=== PATIENT | male | born 1945 | race Caucasian/White ===

== ENCOUNTER 2025-04-25 22:02 | Emergency (ER) | payer OTHER, SELFPAY ==
[2025-04-25 22:08] VITALS: BP 164/89
[2025-04-25 22:50] LABS: Hematocrit 40.2 % (39.0-52.0); Hemoglobin 13.7 g/dL (13.0-18.0); Mean Corp Hgb Conc. 34.1 g/dL (33.0-37.0); Mean Corpuscular Volume 91.2 fL (80.0-94.0); Nucleated Red Blood Cells % 0 % (-); Platelet Count 223 10^3/uL (130-400); Red Cell Dist. Width 13.3 % (11.5-14.5)
[2025-04-25 22:54] LABS: ALT (SGPT) 27 U/L (0-50); AST (SGOT) 23 U/L (17-59); Albumin 4.0 g/dl (3.5-5.0); Alkaline Phosphatase 82 U/L (38-126); Blood Urea Nitrogen 22 mg/dl (9-20); Calcium 10.4 mg/dl (8.4-10.2); Carbon Dioxide 24 mmol/L (22-30); Chloride 109 mmol/L (98-107); Glucose 123 mg/dl (70-99); Potassium 4.0 mmol/L (3.5-5.1); Sodium 138 mmol/L (135-145); Total Protein 6.5 g/dl (6.3-8.2); eGFR > 60.00
[2025-04-26 00:10] VITALS: BP 147/71
--- NOTE | 2025-04-26 01:04 | ED.GENMED ---
History of Present Illness
<Radha Greenberg DO, Resident - Last Filed: 04/26/25 05:52>
General
Chief Complaint: Dizziness
Source: patient
Exam Limitations: none
Time Seen by Provider: 04/26/25 00:45
Nursing documentation reviewed up to this point in time: agreed with
History of Present Illness
History of Present Illness:
Patient is an 79-year-old hypertension and anxiety presenting with dizziness. Patient states that this morning he was constipated and took 2 ducolax. Patient then proceeded to have diarrhea all day. Patient believes he had 5 episodes of diarrhea
the most recent at 6 PM. Around 6 PM patient started to notice that he was feeling dizzy and jittery. He thought maybe he had low blood sugar so he drank some orange juice which helped. He then took a Xanax, which also helped but the symptoms
then returned.
Past History
<Radha Greenberg DO, Resident - Last Filed: 04/26/25 05:52>
Past History
ED Past Medical History: HTN and Other (anxiety)
ED Past Surgical History: Cholecystectomy, Orthopedic and Urological
Social History
Tobacco: Former smoker
Alcohol: Occasional
Personal:
Living: with family
Employment: Retired
Family History
Family History: Other (Colon cancer)
Review of Systems
<Radha Greenberg DO, Resident - Last Filed: 04/26/25 05:52>
Review of Systems
Allergies reviewed?: Yes
All Other Systems: ROS reviewed and negative except as documented in HPI and ROS
Constitutional: Reports no symptoms
EENT: Reports no symptoms
Respiratory: Reports no symptoms
Cardiac: Reports no symptoms
ABD/GI: Reports no symptoms
: Reports no symptoms
Musculoskeletal: Reports no symptoms
Skin: Reports no symptoms
Neurological: Reports dizzy
Endocrine: Reports no symptoms
Hematologic/Lymphatic: Reports no symptoms
Psychiatric: Reports no symptoms
Phy Exam
<Radha Greenberg DO, Resident - Last Filed: 04/26/25 05:52>
General Physical Exam
General Presentation: well appearing and no apparent distress
General age: appears stated age
General Skin: warm and dry
General Habitus: normal
General Mental: alert
General Hydration: appears well hydrated
Cardiovascular Exam
Cardiovascular Exam: regular rate/rhythm
Heart Sounds: normal
Pulmonary Exam
Pulmonary Exam: lungs clear, no respiratory distress, no crackles and no wheezing
Gastrointestinal Exam
Gastrointestinal Exam: normal bowel sounds, non tender, soft and non distended
Neurological Exam
Neurological Exam: alert and oriented x3
Skin Exam
Skin Exam: normal color and warm/dry
Psychiatric Exam
Psychiatric Exam: normal mood/affect
Course
<Radha Greenberg DO, Resident - Last Filed: 04/26/25 05:52>
Orders/Labs/Results
Orders:
Orders
04/25/25 22:16
Electrocardiogram (*1) Urgent
Reason for Study: Vertigo / Dizzy
Cardiology Consult: Unknown
04/25/25 22:17
EKG- Treatment ONCE
04/25/25 22:30
Complete Blood Count/With Diff Urgent
Comprehensive Metabolic Panel Urgent
04/26/25 01:13
Orthostatic VS- Treatment ONCE
Abnormal Lab Results
04/25/25
22:30
RBC 4.41 L 10^6/uL
(4.70-6.10)
MCH 31.1 H pg
(27.0-31.0)
MPV 12.1 H fL
(7.4-10.4)
Absolute Monos (auto) 1.0 H 10^3/uL
(0.1-0.6)
Lymphocytes % 18.6 L %
(20.5-51.1)
Monocytes % 11.4 H %
(1.7-9.3)
Chloride 109 H mmol/L
(98-107)
BUN 22 H mg/dl
(9-20)
Glucose 123 H mg/dl
(70-99)
Calcium 10.4 H mg/dl
(8.4-10.2)
04/25/25 22:30
04/25/25 22:30
Vital Signs
Initial and Last Documented VS:
Initial Vital Signs
Temp Pulse Resp BP Pulse Ox
97.8 F 53 20 164/89 96
04/25/25 22:08 04/25/25 22:08 04/25/25 22:08 04/25/25 22:08 04/25/25 22:08
Last Documented Vital Signs
Temp Pulse Resp BP Pulse Ox
97.8 F 88 18 147/71 94
04/25/25 22:08 04/26/25 00:45 04/26/25 00:45 04/26/25 00:10 04/26/25 01:05
<Mirta King, DO - Last Filed: 04/26/25 01:37>
Orders/Labs/Results
Orders:
Orders
04/25/25 22:16
Electrocardiogram (*1) Urgent
Reason for Study: Vertigo / Dizzy
Cardiology Consult: Unknown
04/25/25 22:17
EKG- Treatment ONCE
04/25/25 22:30
Complete Blood Count/With Diff Urgent
Comprehensive Metabolic Panel Urgent
04/26/25 01:13
Orthostatic VS- Treatment ONCE
Abnormal Lab Results
04/25/25
22:30
RBC 4.41 L 10^6/uL
(4.70-6.10)
MCH 31.1 H pg
(27.0-31.0)
MPV 12.1 H fL
(7.4-10.4)
Absolute Monos (auto) 1.0 H 10^3/uL
(0.1-0.6)
Lymphocytes % 18.6 L %
(20.5-51.1)
Monocytes % 11.4 H %
(1.7-9.3)
Chloride 109 H mmol/L
(98-107)
BUN 22 H mg/dl
(9-20)
Glucose 123 H mg/dl
(70-99)
Calcium 10.4 H mg/dl
(8.4-10.2)
04/25/25 22:30
04/25/25 22:30
Vital Signs
Initial and Last Documented VS:
Initial Vital Signs
Temp Pulse Resp BP Pulse Ox
97.8 F 53 20 164/89 96
04/25/25 22:08 04/25/25 22:08 04/25/25 22:08 04/25/25 22:08 04/25/25 22:08
Last Documented Vital Signs
Temp Pulse Resp BP Pulse Ox
97.8 F 88 18 147/71 94
04/25/25 22:08 04/26/25 00:45 04/26/25 00:45 04/26/25 00:10 04/26/25 01:05
<Radha Greenberg DO, Resident - Last Filed: 04/26/25 05:52>
MDM/Problems Addressed
Differential Diagnosis Includes:
Mild dehydration in setting of diarrhea, chronic constipation
MDM/Problems Addressed:
Symptoms have completely resolved since being in the ED. Symptoms likely related to earlier diarrhea associated with taking Ducolax earlier in the day for constipation. Will do orthostatics for completeness.
Will discharge patient with recommendations for increase fiber intake.
<Radha Greenberg DO, Resident - Last Filed: 04/26/25 05:52>
*Pulse Oximetry
SaO2: 94
Oxygen Mode of Delivery: Room air
Patient hypoxic: no
*Critical Care Note
Total Time (30-74mins, 75-104mins- exclusive of procedures): Not Applicable
ED Attending Note
<Radha Greenberg DO, Resident - Last Filed: 04/26/25 05:52>
-
Portions of this chart may have been created with voice recognition software.� Occasional wrong word or��sound alike� substitutions may have occurred due to the inherent limitations of voice recognition software.
<Mirta King DO - Last Filed: 04/26/25 01:37>
ED Attending Note
Patient seen and examined by attending physician: Yes
I performed a history and physical exam of patient and discussed management with resident, I reviewed resident's note and agree with documented findings and plan of care.: Yes
ED Attending Note:
This is a maurice 79-year-old gentleman with history of hypertension, hyperlipidemia, anxiety, chronic back pain, chronically maintained on opioids. He does note some chronic constipation and today he took 2 Dulcolax tablets this morning and
proceeded to pass 5-6 watery nonbloody bowel movements. This evening around 6 PM he began to feel dizzy, mildly shaky but no chest pain or palpitations, no diaphoresis. He drank orange juice and felt improved. He ate dinner. He continued with
mild shakiness and took a dose of Xanax with marked improvement and now has had complete resolution.
He continues to deny abdominal pain. No headache.
No history of diabetes nor hypoglycemia.
79-year-old overweight gentleman appears his stated age, bright and alert, pleasant, appears in no acute distress.
Oral mucosa is moist.
Neck is supple, nontender. No JVD.
Heart is regular rate and rhythm.
Lungs are clear to auscultation.
Abdomen is rotund, soft, nondistended, nontender. Normoactive bowel sounds.
Extremities without clubbing or cyanosis or edema. Nontender.
Neuro: Awake alert and oriented x 3. No focal neurodeficits. Gait is steady.
Patient has had complete resolution of symptoms which I suspect were mild dehydration related to diarrhea which appears related to laxative use.
He admits to chronic constipation and likely related to chronic opioid therapy. Thus far has not been maintained on a bowel regimen.
EKG is unremarkable and unchanged from previous. Monitor shows normal sinus rhythm. No arrhythmia.
He remains hemodynamically stable.
Labs are unremarkable save for very minimally elevated BUN of 22. Normal glucose 123.
My plan was to check orthostatic vital signs for completeness sake but patient has since gotten himself up out of bed, into the bathroom, has gotten himself dressed and remains asymptomatic. Thus no indication for orthostatic vital sign evaluation.
Recommend initiation of a daily fiber supplement and if this is ineffective then add MiraLAX to daily fiber supplement.
Discussed importance of staying well-hydrated on a daily basis.
Prompt follow-up with PCP for recheck.
Return precautions discussed.
.
Discharge Plan
Departure
Patient Disposition: Home (Routine Discharge)
Date of Disposition: 04/26/25
Time of Disposition: 01:30
Patient with high blood pressure during this ER visit?: No
Condition: Good
Discharge Problem:
Laxative related diarrhea, Dizziness related to mild dehydration
Instructions: Managing constipation from your medicines, Dizziness
Prescriptions:
No Action
oxycodone 10 MG tablet
10 mg PO BIDPRN MDD 40mg PRN (Reason: severe pain)
Patient Comments:
09/24/2023, pt. filled this medication on 09/12/2023 for 60 tablets according to PDMP.
amlodipine 5 MG tablet
5 mg PO DAILY
melatonin 5 MG tablet
10 mg PO HS
polyethylene glycol 3350 17 GRAMS powder in packet
17 grams PO DAILY PRN (Reason: Constipation)
acetaminophen [Tylenol Extra Strength] 500 mg Tablet
1,000 mg PO DAILYPRN PRN (Reason: mild pain)
alprazolam 0.25 mg Tablet
0.25 mg PO DAILY PRN (Reason: anxiety)
Patient Comments:
09/24/2023, pt. filled this medication on 09/18/2023 for 30 tablets according to PDMP.
paroxetine HCl 40 mg Tablet
60 mg PO DAILY
losartan 100 mg Tablet
50 mg PO DAILY
fenofibrate nanocrystallized 145 mg Tablet
145 mg PO DAILY
oseltamivir 75 mg Capsule
75 mg PO BID Qty: 4 0RF
atorvastatin 40 mg Tablet
40 mg PO QPM Qty: 30 0RF
aspirin 81 mg Tablet,Delayed Release (Dr/Ec)
81 mg PO DAILY Qty: 30 0RF
folic acid 1 mg Tablet
1 mg PO DAILY Qty: 30 0RF
thiamine HCl (vitamin B1) 100 mg tablet
100 mg PO DAILY Qty: 20 0RF
Activity Restrictions/Additional Instructions:
I want you to start a fiber supplement such as Metamucil or Benefiber and continue this on a daily basis.
If daily fiber supplement is not completely effective with limiting constipation, I want you to continue daily fiber supplement as well as add a daily dose of MiraLAX.
Continue this regimen on a daily basis as well as stay well-hydrated on a daily basis.
Follow-up with your primary care physician for recheck.
Interventions
Interventions:
*Risk Screen - Suicide Last Done: 04/25/25 22:08
*General Assessment Last Done: 04/25/25 22:08
*Neglect/Abuse Screening Last Done: 04/25/25 22:08
*ED- Fall Risk Assessment Last Done: 04/25/25 22:08
*ED COVID-19 Vaccine History Last Done: 04/25/25 22:08
*Nursing Disposition Last Done: 04/26/25 02:05
ED- Neurological Assessment Last Done: 04/26/25 02:05
ED- Cardiac Assessment Last Done: 04/26/25 02:05
ED Swallowing Screen Last Done: 04/26/25 02:05
Discharge Date and Time
Discharge Date/Time: 04/26/25 02:07
Print Language: YI
== END 2025-04-26 02:07 | disposition home or self-care (01) ==
LOC: EMR 22:02
PROVIDERS: EMERGENCY PHYSICIAN Emergency Medicine; FAMILY PHYSICIAN Family Medicine
DX: R19.7 Diarrhea, unspecified (principal); T47.2X5A Adverse effect of stimulant laxatives, initial encounter; E86.0 Dehydration; R42 Dizziness and giddiness; I10 Essential (primary) hypertension; E78.5 Hyperlipidemia, unspecified; E66.3 Overweight; G89.29 Other chronic pain; Z79.891 Long term (current) use of opiate analgesic
CPT/HCPCS: 99284; 80053; 85025; 93005

== ENCOUNTER → 2025-05-01 21:16 | Emergency (ER) | payer OTHER, SELFPAY ==
[2025-05-01 21:21] VITALS: BP 120/86
[2025-05-01 22:16] VITALS: BMI 36.7
[2025-05-01 22:19] VITALS: BP 180/71
--- NOTE | 2025-05-01 22:36 | ED.GENMED ---
History of Present Illness
General
Chief Complaint: Anxiety
Source: patient
Exam Limitations: none
Time Seen by Provider: 05/01/25 22:23
Nursing documentation reviewed up to this point in time: agreed with
History of Present Illness
History of Present Illness:
79-year-old male presenting with the sensation of anxiety, diaphoresis, and a feeling of loss of control and experiencing 'physiological changes' that began suddenly while getting into bed around 8:15 PM. The patient reports breaking out into a
sweat and experiencing tremors and changes in mental status, described as a 'loss of control.' 'I just feel afraid, scared because of the mental change.'
Denies chest pain, shortness of breath, headaches, or vision changes. Had back spasms earlier tonight and applied a cold pack which provided relief. He has been experiencing constipation for which he takes a laxative, with his last bowel movement
reported as this morning. He fell backwards last week but denies hitting his head.
I called his who states he went to bed and 5 minutes later he came back...'and I don't know, I just do not know.' 'He has a pill for everything, but I guess not this.' she states he has been more anxious lately.
has been babysitting a 10 and 6-year-old grandchild all week, they are due to go home tomorrow. This may be aggravating factor. She states she has no clue why he is like this. States it is out of character for him to act like this.
He has appt in 2 weeks to discuss hip replacement. He states 'maybe I'm anxious about that'
Past History
Past History
ED Past Medical History: HTN and Other (anxiety)
ED Past Surgical History: Cholecystectomy, Orthopedic and Urological
Social History
Tobacco: Former smoker
Alcohol: Occasional
Personal:
Living: with family
Employment: Retired
Family History
Family History: Other (Colon cancer)
Review of Systems
Review of Systems
Allergies reviewed?: Yes
All Other Systems: ROS reviewed and negative except as documented in HPI and ROS
Constitutional: Denies fever or fatigue
Respiratory: Denies trouble breathing
Cardiac: Reports diaphoresis; Denies chest pain or palpitations
ABD/GI: Denies abdominal pain, nausea, vomiting or diarrhea
: Reports difficulty voiding
Musculoskeletal: Reports no symptoms; Denies edema
Skin: Reports no symptoms
Neurological: Reports no symptoms
Psychiatric: Reports anxiety
Phy Exam
Physical Exam
Physical Exam:
GENERAL: No acute distress. A&Ox3.
CONSTITUTIONAL: Afebrile.
EYES: clear, conjunctivae normal
ENMT: moist mucus membranes, Pharynx nl
RESPIRATORY: Regular respirations, nonlabored, lungs clear.
CARDIOVASCULAR: Regular rate and rhythm, no murmurs, no rubs.
GI: Soft, nontender, normal BS
MUSCULOSKELETAL: Moves with ease. Well perfused.
SKIN: Warm, dry, pink
PSYCH: Anxious mood and affect. Patient evaluated, case still but is pleasant and conversive. Well kept, interactive and appropriate
NEUROLOGIC: Awake, alert and oriented. No focal neurological deficits
Course
Orders/Labs/Results
Orders:
Orders
05/01/25 22:22
Electrocardiogram (*1) Urgent
Reason for Study: Hypertension, Benign
EKG- Treatment ONCE
05/01/25 22:48
CBC/With Diff [Complete Blood Count/With Diff] Urgent
Comprehensive Metabolic Panel Routine
05/01/25 23:00
Troponin I Urgent
Abnormal Lab Results
05/01/25
22:48
RBC 4.38 L 10^6/uL
(4.70-6.10)
MCH 31.1 H pg
(27.0-31.0)
MPV 11.9 H fL
(7.4-10.4)
Absolute Neuts (auto) 6.6 H 10^3/uL
(1.4-6.5)
Absolute Monos (auto) 1.1 H 10^3/uL
(0.1-0.6)
Lymphocytes % 20.1 L %
(20.5-51.1)
Monocytes % 11.1 H %
(1.7-9.3)
BUN 26 H mg/dl
(9-20)
Glucose 101 H mg/dl
(70-99)
05/01/25 22:48
05/01/25 22:48
Vital Signs
Initial and Last Documented VS:
Initial Vital Signs
Temp Pulse Resp BP Pulse Ox
98 F 85 16 120/86 99
05/01/25 21:21 05/01/25 21:21 05/01/25 21:21 05/01/25 21:21 05/01/25 21:21
Last Documented Vital Signs
Temp Pulse Resp BP Pulse Ox
98 F 73 15 159/75 99
05/01/25 21:21 05/01/25 23:15 05/01/25 23:15 05/01/25 23:01 05/01/25 22:40
MDM/Problems Addressed
Differential Diagnosis Includes:
anxiety exacerbation, electrolyte imbalance
MDM/Problems Addressed:
79-year-old male presenting with the sensation of anxiety, diaphoresis, and a feeling of loss of control and experiencing 'physiological changes' that began suddenly while getting into bed around 8:15 PM. The patient reports breaking out into a
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
Denies chest pain, shortness of breath, headaches, or vision changes. Had back spasms earlier tonight and applied a cold pack which provided relief. He has been experiencing constipation for which he takes a laxative, with his last bowel movement
reported as this morning. He fell backwards last week but denies hitting his head. He had his usual one drink of Rum and coke tonight.
I called his who states he went to bed and 5 minutes later he came back...'and I don't know, I just do not know.' 'He has a pill for everything, but I guess not this.' she states he has been more anxious lately.
has been babysitting a 10 and 6-year-old grandchild all week, they are due to go home tomorrow. This may be aggravating factor. She states she has no clue why he is like this. States it is out of character for him to act like this.
He has appt in 2 weeks to discuss hip replacement. He states 'maybe I'm anxious about that'
Pt takes Paxil and Xanax. He took 1/2 of his 0.25 mg Xanax [employer] and says it helps but it is wearing off.
He requests I give him something for anxiety. I informed him he should use his Xanax he has at home as directed, no indication to give more at this point.
Plan: Check labs, Troponin, EKG is NSR.
If pritesh, reassure. He has Xanax at home if needed.
11:30 PM:
Patient more calm, pleasant, had a lengthy conversation with him states he is feeling better,. He states he is taking his paroxetine as ordered
CBC with no clinically significant abnormality
CMP with no clinically significant abnormality
Troponin normal
Pt reassured
Patient called his daughter to call him an [employer]
*Pulse Oximetry
SaO2: 99
Oxygen Mode of Delivery: Room air
Patient hypoxic: no
*Critical Care Note
Total Time (30-74mins, 75-104mins- exclusive of procedures): Not Applicable
ED Attending Note
-
Portions of this chart may have been created with voice recognition software.� Occasional wrong word or��sound alike� substitutions may have occurred due to the inherent limitations of voice recognition software.
Discharge Plan
Departure
Patient Disposition: Home (Routine Discharge)
Date of Disposition: 05/01/25
Time of Disposition: 23:46
Patient with high blood pressure during this ER visit?: No
Condition: Good
Discharge Problem:
Anxiety
Instructions: Anxiety, Adult (DC)
Prescriptions:
No Action
oxycodone 10 MG tablet
10 mg PO BIDPRN MDD 40mg PRN (Reason: severe pain)
Patient Comments:
09/24/2023, pt. filled this medication on 09/12/2023 for 60 tablets according to PDMP.
amlodipine 5 MG tablet
5 mg PO DAILY
melatonin 5 MG tablet
10 mg PO HS
polyethylene glycol 3350 17 GRAMS powder in packet
17 grams PO DAILY PRN (Reason: Constipation)
acetaminophen [Tylenol Extra Strength] 500 mg Tablet
1,000 mg PO DAILYPRN PRN (Reason: mild pain)
alprazolam 0.25 mg Tablet
0.25 mg PO DAILY PRN (Reason: anxiety)
Patient Comments:
09/24/2023, pt. filled this medication on 09/18/2023 for 30 tablets according to PDMP.
paroxetine HCl 40 mg Tablet
60 mg PO DAILY
losartan 100 mg Tablet
50 mg PO DAILY
fenofibrate nanocrystallized 145 mg Tablet
145 mg PO DAILY
oseltamivir 75 mg Capsule
75 mg PO BID Qty: 4 0RF
atorvastatin 40 mg Tablet
40 mg PO QPM Qty: 30 0RF
aspirin 81 mg Tablet,Delayed Release (Dr/Ec)
81 mg PO DAILY Qty: 30 0RF
folic acid 1 mg Tablet
1 mg PO DAILY Qty: 30 0RF
thiamine HCl (vitamin B1) 100 mg tablet
100 mg PO DAILY Qty: 20 0RF
Referrals:
Ad Castaneda DO [Family Provider, Family Practice] - Follow up in 2-3 days
Activity Restrictions/Additional Instructions:
As we discussed, nothing worrisome in your workup here tonight.
Continue your Xanax as ordered
Interventions
Interventions:
*Risk Screen - Suicide Last Done: 05/01/25 21:21
*Neglect/Abuse Screening Last Done: 05/01/25 21:21
Discharge Date and Time
Print Language: PANAMANIAN
[2025-05-01 22:55] LABS: Hematocrit 39.7 % (39.0-52.0); Hemoglobin 13.6 g/dL (13.0-18.0); Mean Corp Hgb Conc. 34.3 g/dL (33.0-37.0); Mean Corpuscular Volume 90.6 fL (80.0-94.0); Nucleated Red Blood Cells % 0 % (-); Platelet Count 235 10^3/uL (130-400); Red Cell Dist. Width 13.1 % (11.5-14.5)
[2025-05-01 23:01] VITALS: BP 159/75
[2025-05-01 23:17] LABS: ALT (SGPT) 34 U/L (0-50); AST (SGOT) 31 U/L (17-59); Albumin 4.4 g/dl (3.5-5.0); Alkaline Phosphatase 92 U/L (38-126); Blood Urea Nitrogen 26 mg/dl (9-20); Calcium 9.9 mg/dl (8.4-10.2); Carbon Dioxide 24 mmol/L (22-30); Chloride 107 mmol/L (98-107); Estimated Creatinine Clearance 87 ml/min; Glucose 101 mg/dl (70-99); Potassium 4.3 mmol/L (3.5-5.1); Sodium 138 mmol/L (135-145); Total Protein 6.8 g/dl (6.3-8.2); eGFR > 60.00
[2025-05-01 23:34] LABS: Troponin I 0.012 ng/ml
== END | disposition home or self-care (01) ==
LOC: EMR 21:16
PROVIDERS: Registered Nurse; EMERGENCY PHYSICIAN Student in an Organized Health Care Education/Training Program; FAMILY PHYSICIAN Family Medicine
DX: F41.9 Anxiety disorder, unspecified (principal); I10 Essential (primary) hypertension; Z80.0 Family history of malignant neoplasm of digestive organs; Z87.891 Personal history of nicotine dependence; Z90.49 Acquired absence of other specified parts of digestive tract
CPT/HCPCS: 99283; 80053; 84484; 85025; 93005

== ENCOUNTER 2025-05-02 15:44 | Emergency (ER) | payer OTHER, SELFPAY ==
[2025-05-02 15:50] VITALS: BP 152/70
--- NOTE | 2025-05-02 17:03 | ED.GENMED ---
History of Present Illness
General
Chief Complaint: Anxiety
Source: patient, spouse and family
Exam Limitations: none
Time Seen by Provider: 05/02/25 16:20
Nursing documentation reviewed up to this point in time: agreed with
History of Present Illness
History of Present Illness:
Patient is an 79-year-old male with past medica history of anxiety, hypertension, high cholesterol alcohol use presents to the ER for evaluation. Patient here with his who is giving history along with his daughter who is a nurse practitioner
over the phone. Family reports patient is been very anxious and more confused. He does have some slight cognitive issues however father reports he seems more confused than normal over the past week and is very shaky jittery sweaty. Daughter
reports patient seen afraid and anxious. Patient does report he skipped several doses of paroxetine and is on alprazolam as needed today he took several doses. Patient typically drinks rum every day mostly in the evenings. LAst drank last night.
No prior history of withdrawal seizures. Patient denies any recent illness fever chills denies any chest pain shortness of breath.
Past History
Past History
ED Past Medical History: HTN and Other (anxiety)
ED Past Surgical History: Cholecystectomy, Orthopedic and Urological
Social History
Tobacco: Former smoker
Alcohol: Occasional
Personal:
Living: with family
Employment: Retired
Family History
Family History: Other (Colon cancer)
Phy Exam
General Physical Exam
General Presentation: no apparent distress
General age: appears stated age
General Skin: warm and dry
General Habitus: normal
General Mental: alert
General Hydration: appears well hydrated
Cardiovascular Exam
Cardiovascular Exam: regular rate/rhythm, no murmur and normal peripheral pulses
Pulmonary Exam
Pulmonary Exam: lungs clear and no respiratory distress
Neurological Exam
Neurological Exam: alert, oriented x3, no motor deficits and no sensory deficits
Musculoskeletal Exam
Musculoskeletal Exam: full ROM
Skin Exam
Skin Exam: normal color and warm/dry
Psychiatric Exam
Psychiatric Exam: anxious
Course
Orders/Labs/Results
Orders:
Orders
05/02/25 17:01
CT Head W/o Iv Contrast Urgent
Comment:
Reason For Exam: change in ms
IV Insert/Care/Rem.- Treatment PRN
05/02/25 17:44
Complete Blood Count/With Diff Urgent
Comprehensive Metabolic Panel Urgent
05/02/25 18:18
Urinalysis Reflex To Culture Urgent
Date Specimen was Collected: 05/02/25
Time Specimen was Collected: 18:15
Urine Microscopic Reflex Cult Urgent
Urine Culture Urgent
SAMI Source: U
Specimen Description:
Obtained by: Random
Date Specimen was Collected: 05/02/25
Time Specimen was Collected: 18:15
05/02/25 20:22
Cefdinir [Omnicef] 300 mg PO NOW STA
Abnormal Lab Results
05/02/25 05/02/25
17:44 18:18
RBC 4.28 L 10^6/uL
(4.70-6.10)
MPV 12.3 H fL
(7.4-10.4)
Absolute Monos (auto) 1.0 H 10^3/uL
(0.1-0.6)
Lymphocytes % 19.3 L %
(20.5-51.1)
Monocytes % 12.5 H %
(1.7-9.3)
Chloride 108 H mmol/L
(98-107)
BUN 24 H mg/dl
(9-20)
Glucose 109 H mg/dl
(70-99)
Ur Occult Blood Reflex 2+ A
(Negative)
Leukocyte Esterase Rfl 3+ A
(Negative)
Urine RBC 11-15 A /HPF
(0-2)
Urine WBC (Reflex) 30-40 A /HPF
(0-5)
Urine Bacteria (Reflex) Moderate A
(Negative)
Urine Albumin (Reflex) 1+ A
(Neg - Trace)
05/02/25 17:44
05/02/25 17:44
Vital Signs
Initial and Last Documented VS:
Initial Vital Signs
Temp Pulse Resp BP Pulse Ox
97.9 F 78 17 152/70 99
05/02/25 15:50 05/02/25 15:50 05/02/25 15:50 05/02/25 15:50 05/02/25 15:50
Last Documented Vital Signs
Temp Pulse Resp BP Pulse Ox
97.9 F 78 17 152/70 99
05/02/25 15:50 05/02/25 15:50 05/02/25 15:50 05/02/25 15:50 05/02/25 17:06
MDM/Problems Addressed
Differential Diagnosis Includes:
Not limited to dehydration UTI alcohol use, infection
MDM/Problems Addressed:
As documented patient is an 79-year-old male with cognitive issues/memory issues and anxiety. Family noted patient has been a little more confused than normal. Patient was seen here yesterday. Patient presents awake alert he does complain of
mild anxiety however he is awake alert no acute distress no recent fever chills illness or injury. Patient is well-appearing afebrile normal white count stable hemoglobin BUN minimally elevated however he has been drinking here UTI does appear
infected likely the cause of patient's mild confusion patient is well-appearing and wants to go home. In addition family reports and patient does admit to alcohol use/abuse that he drinks from mixed with either soda or juice every day. Family
asked about rehab however patient does not want to go to inpatient rehab. He is open to resources. He would like to go home and try to arrange this as an outpatient.
[facility] they will contact patient in the morning
I did review with daughter and importance of close outpatient follow-up for reevaluation of UTI and anxiety and reiterated the importance of alcohol cessation. patient has no prior history of withdrawal seizures he has no evidence of alcohol
withdrawal here in the ER. He is anxious however has anxiety at baseline hide he is awake alert cooperative answering questions ambulatory in the ER steady on his feet. He has a prescription for prednisone at home
Chronic conditions affecting care:
Alcohol use cognitive issues
*Radiology
Radiology exam reviewed: radiology read reviewed
*Pulse Oximetry
SaO2: 99
Oxygen Mode of Delivery: Room air
Patient hypoxic: no
*Critical Care Note
Total Time (30-74mins, 75-104mins- exclusive of procedures): Not Applicable
Data Reviewed
Review of Other/Old Records Reveals: Other (ED chart from yesterday )
Source: patient
ED Attending Note
-
Portions of this chart may have been created with voice recognition software.� Occasional wrong word or��sound alike� substitutions may have occurred due to the inherent limitations of voice recognition software.
Discharge Plan
Departure
Patient Disposition: Home (Routine Discharge)
Date of Disposition: 05/02/25
Time of Disposition: 20:31
Patient with high blood pressure during this ER visit?: Yes
Condition: Fair
Covid-19: Not Applicable
Discharge Problem:
Acute UTI, Anxiety
Instructions: Anxiety, Adult (DC), Urinary tract infection (DC), BLOOD PRESSURE
Prescriptions:
New
cefdinir 300 mg capsule
300 mg PO BID Qty: 20 0RF
No Action
oxycodone 10 MG tablet
10 mg PO BIDPRN MDD 40mg PRN (Reason: severe pain)
Patient Comments:
09/24/2023, pt. filled this medication on 09/12/2023 for 60 tablets according to PDMP.
amlodipine 5 MG tablet
5 mg PO DAILY
melatonin 5 MG tablet
10 mg PO HS
polyethylene glycol 3350 17 GRAMS powder in packet
17 grams PO DAILY PRN (Reason: Constipation)
acetaminophen [Tylenol Extra Strength] 500 mg Tablet
1,000 mg PO DAILYPRN PRN (Reason: mild pain)
alprazolam 0.25 mg Tablet
0.25 mg PO DAILY PRN (Reason: anxiety)
Patient Comments:
09/24/2023, pt. filled this medication on 09/18/2023 for 30 tablets according to PDMP.
paroxetine HCl 40 mg Tablet
60 mg PO DAILY
losartan 100 mg Tablet
50 mg PO DAILY
fenofibrate nanocrystallized 145 mg Tablet
145 mg PO DAILY
oseltamivir 75 mg Capsule
75 mg PO BID Qty: 4 0RF
atorvastatin 40 mg Tablet
40 mg PO QPM Qty: 30 0RF
aspirin 81 mg Tablet,Delayed Release (Dr/Ec)
81 mg PO DAILY Qty: 30 0RF
folic acid 1 mg Tablet
1 mg PO DAILY Qty: 30 0RF
thiamine HCl (vitamin B1) 100 mg tablet
100 mg PO DAILY Qty: 20 0RF
Referrals:
Ad Castaneda DO [Family Provider, Family Practice]
Activity Restrictions/Additional Instructions:
As discussed take antibiotic as directed for UTI this medication was sent to your pharmacy. Please follow-up with family doctor for reevaluation of UTI as well as her anxiety. As discussed someone will be reaching out to you tomorrow regarding
outpatient resources for alcohol rehab.
Return if any worsening of symptoms
Interventions
Interventions:
*Risk Screen - Suicide Last Done: 05/02/25 15:51
*General Assessment Last Done: 05/02/25 15:51
*Neglect/Abuse Screening Last Done: 05/02/25 15:51
*ED COVID-19 Vaccine History Last Done: 05/02/25 15:51
Discharge Date and Time
Print Language: MARSHALLESE
[2025-05-02 17:27] VITALS: BMI 36.3
[2025-05-02 17:55] LABS: Hematocrit 39.5 % (39.0-52.0); Hemoglobin 13.1 g/dL (13.0-18.0); Mean Corp Hgb Conc. 33.2 g/dL (33.0-37.0); Mean Corpuscular Volume 92.3 fL (80.0-94.0); Nucleated Red Blood Cells % 0 % (-); Platelet Count 229 10^3/uL (130-400); Red Cell Dist. Width 13.2 % (11.5-14.5)
[2025-05-02 18:00] VITALS: BP 158/78
[2025-05-02 18:07] LABS: ALT (SGPT) 26 U/L (0-50); AST (SGOT) 20 U/L (17-59); Albumin 4.1 g/dl (3.5-5.0); Alkaline Phosphatase 81 U/L (38-126); Blood Urea Nitrogen 24 mg/dl (9-20); Calcium 10.2 mg/dl (8.4-10.2); Carbon Dioxide 25 mmol/L (22-30); Chloride 108 mmol/L (98-107); Estimated Creatinine Clearance 86 ml/min; Glucose 109 mg/dl (70-99); Potassium 4.3 mmol/L (3.5-5.1); Sodium 138 mmol/L (135-145); Total Protein 6.5 g/dl (6.3-8.2); eGFR > 60.00
[2025-05-02 18:43] LABS: Urine Character Slightly Cloudy (Clear)
[2025-05-02 18:59] LABS: Urine Squamous Cell 0-2 /LPF (Few); Urine White Cell 30-40 /HPF (0-5)
[2025-05-02 20:00] VITALS: BP 149/70
[2025-05-02] MEDS: OMNICEF 300 MG PO (20:48)
== END 2025-05-02 21:10 | disposition home or self-care (01) ==
LOC: EMR 15:44
PROVIDERS: Nurse Practitioner; EMERGENCY PHYSICIAN Emergency Medicine; FAMILY PHYSICIAN Family Medicine
DX: N39.0 Urinary tract infection, site not specified (principal); F41.9 Anxiety disorder, unspecified; I10 Essential (primary) hypertension; E78.00 Pure hypercholesterolemia, unspecified; F10.10 Alcohol abuse, uncomplicated; T43.226A Underdosing of selective serotonin reuptake inhibitors, initial encounter; Z91.128 Patient's intentional underdosing of medication regimen for other reason; Z87.891 Personal history of nicotine dependence
CPT/HCPCS: 99284; 70450; 80053; 81003; 81015; 85025; 87086